=== PATIENT | male | born 1955 | race Caucasian/White ===

== ENCOUNTER 2018-11-17 07:29 | Emergency (ER) | payer OTHER ==
[~2018-11-17] VITALS: Ht 175.3 cm; Wt 88.5 kg
[2018-11-17 07:32] VITALS: Ht 175.3 cm; Wt 88.5 kg
[2018-11-17 09:05] VITALS: BP 130/79
== END 2018-11-17 09:05 | disposition home or self-care (01) ==
LOC: ED 07:29
DX: M25.561 Pain in right knee (principal); I10 Essential (primary) hypertension; E78.00 Pure hypercholesterolemia, unspecified; Z88.0 Allergy status to penicillin

== ENCOUNTER 2019-02-28 12:56 | Emergency (ER) | payer OTHER ==
[~2019-02-28] VITALS: Ht 177.8 cm; Wt 86.2 kg
[2019-02-28 12:59] VITALS: Ht 177.8 cm; Wt 86.2 kg
[2019-02-28 15:09] VITALS: BP 155/90
== END 2019-02-28 15:09 | disposition home or self-care (01) ==
LOC: ED 12:56
DX: K59.00 Constipation, unspecified (principal); K64.4 Residual hemorrhoidal skin tags; I10 Essential (primary) hypertension; Z88.0 Allergy status to penicillin; Z90.89 Acquired absence of other organs
CPT/HCPCS: J1885; J2270; Q0162